=== PATIENT | female | born 1985 ===

== ENCOUNTER 2021-11-26 00:13 | Emergency (ER) | payer OTHER ==
[~2021-11-26] VITALS: Ht 154.9 cm; Wt 56.7 kg
[~2021-11-26 00:13] MED LIST: CYCL10 PO; DIAZ5 PO; ESCI10 PO; FLUO20 PO; HYDACE5 PO; IBUP600 PO; NAPR375 PO; Norco 5-325 Ta1 EACH PO
[2021-11-26] MEDS ORDERED: Ativan1 MG PO (00:29)
== END 2021-11-26 03:49 | disposition home or self-care (01) ==
LOC: ER 00:13
DX: S50.11XA Contusion of right forearm, initial encounter (principal); S80.02XA Contusion of left knee, initial encounter; S80.11XA Contusion of right lower leg, initial encounter; S20.412A Abrasion of left back wall of thorax, initial encounter; T74.11XA Adult physical abuse, confirmed, initial encounter; T71.193A Asphyxiation due to mechanical threat to breathing due to other causes, assault, initial encounter; F41.9 Anxiety disorder, unspecified; Z88.8 Allergy status to other drugs, medicaments and biological substances; Z87.891 Personal history of nicotine dependence; Y04.2XXA Assault by strike against or bumped into by another person, initial encounter; Y07.01 Husband, perpetrator of maltreatment and neglect
CPT/HCPCS: 70498; 73090; A9270; J1885; J7030; Q9967